=== PATIENT | male | born 1985 | race Caucasian/White ===

== ENCOUNTER 2016-07-19 04:53 | Emergency (ER) | payer SELFPAY ==
[~2016-07-19] VITALS: Ht 185.4 cm; Wt 104.3 kg
[2016-07-19 04:55] VITALS: BP_SYST 133
[2016-07-19] MEDS ORDERED: OXYCODONE/ACETAMINOPHEN 5-325 TABLET PO ONE (05:45)
[2016-07-19 06:47] VITALS: BP_SYST 126
== END 2016-07-19 06:47 | disposition home or self-care (01) ==
LOC: SED 04:53
DX: S16.1XXA Strain of muscle, fascia and tendon at neck level, initial encounter (principal); S06.0X9A Concussion with loss of consciousness of unspecified duration, initial encounter; V43.62XA Car passenger injured in collision with other type car in traffic accident, initial encounter; Y93.89 Activity, other specified; Y99.8 Other external cause status; Y92.89 Other specified places as the place of occurrence of the external cause
CPT/HCPCS: 70450-TC; 71010; 72125-TC; 99284